=== PATIENT | female | born 1950 | race Caucasian/White ===

== ENCOUNTER 2022-04-16 13:30 | Outpatient (CLI) | payer MEDICARE, SELFPAY ==
--- NOTE | ~2022-04-16 | CT_ITS ---
EXAMINATION: CT brain wo/w & sinus wo con DATE: 04/16/2022 14:00 INDICATION: Headache, new onset. TECHNIQUE: Computed tomography (CT) of the head and sinuses was performed without intravenous contras t. The mA was adjusted according to patient size. Iterative reconstruction technique was employed. Th e dose-length product was 1286.33 mGy-cm. COMPARISON: None FINDINGS: CT HEAD: There are scattered areas of low attenuation in the cerebral white matter, which is within n ormal limits for the patient's age. There is no intracranial hemorrhage, acute infarction, or abnorma l intracranial mass lesion. The ventricles are normal in size. There are likely changes of ocular bi s replacement surgeries. There is a small right mastoid effusion. CT SINUSES: There is leftward deviation of the nasal septum. The frontal sinuses are clear. There is mild mucosal thickening in left sphenoid sinus. The ethmoid and maxillary sinuses are clear. The osti omeatal units are widely patent. IMPRESSION: 1. Normal aging brain. 2. Mild mucosal thickening in sphenoid sinus. 3. Leftward deviation of the nasal septum. Reviewed, dictated and finalized at location A. DEPARTMENT HEAD
[2022-04-16 13:54] LABS: Estimated Glomerular Filt Rate > 60
== END 2022-04-16 13:31 | disposition home or self-care (01) ==
PROVIDERS: PCP Emergency Medicine; Visit Provider Emergency Medicine
DX: R51.9 Headache, unspecified (principal); J34.2 Deviated nasal septum
CPT/HCPCS: 70470; 70486

== ENCOUNTER 2023-04-07 10:05 | Outpatient (CLI) | payer MEDICARE, SELFPAY ==
--- NOTE | ~2023-04-07 | US_ITS ---
EXAMINATION: US thyroid DATE: 04/07/2023 10:50 INDICATION: Nontoxic single thyroid nodule. TECHNIQUE: Multiple ultrasound images of the thyroid were obtained. COMPARISON: None. FINDINGS: The right thyroid lobe measures 4.8 x 2.0 x 1.9 cm. The left thyroid lobe measures 4.9 x 1.3 x 1.9 c m. There are multiple subcentimeter nodules in the thyroid. In the right thyroid lobe, there is a 12 mm solid, hypoechoic, wider than tall nodule with lobulated margin without echogenic foci (TI-RADS T R4). In the right thyroid lobe, there is a 2.9 cm solid, hypoechoic, wider than tall nodule with smoo th margin without echogenic foci (TR4). IMPRESSION: 1. Multinodular goiter. Ultrasound-guided fine-needle aspiration of the 2.9 cm right thyroid nodule i s recommended. Reviewed, dictated and finalized at location E. IMPRESSION: 1. Multinodular goiter. Ultrasound-guided fine-needle aspiration of the 2.9 cm right thyroid nodule is recommended.
== END 2023-04-07 10:06 | disposition home or self-care (01) ==
LOC: ANHIMG 10:09
PROVIDERS: PCP Emergency Medicine; Visit Provider Emergency Medicine
DX: E04.2 Nontoxic multinodular goiter (principal)
CPT/HCPCS: 76536

== ENCOUNTER 2023-08-26 07:38 | Outpatient (CLI) | payer MEDICARE, SELFPAY ==
--- NOTE | ~2023-08-26 | DEXA_ITS ---
Bone Density Report Name: MATTEO HENDERSON Age: 73 Sex: Female Ethnicity: White Date of : 1950 Indication: postmenopausal; screening for osteoporosis; height loss; history of glucocorticoids; Referring Provider: ALKA ZAPATA Study: Bone densitometry was performed. Exam Date: August 26, 2023 Accession number: [id number] Bone Density: Region BMD T-score Z-score Classification AP Spine(L1-L4) 1.016 -0.3 2.1 Normal Femoral Neck (Left) 0.792 -0.5 1.5 Normal Total Hip (Left) 0.919 -0.2 1.6 Normal Femoral Neck (Right) 0.784 -0.6 1.5 Normal Total Hip (Right) 0.998 0.5 2.2 Normal Total Hip Mean 0.958 0.2 1.9 Normal World Health Organization criteria for BMD impression classify patients as: Normal (T-score at or above -1.0), Osteopenia (T-score between -1.0 and -2.5), or Osteoporosis (T-score at or below -2.5). 10-year Fracture Risk: FRAX not reported because: All T-scores for Spine Total, Hip Total, Femoral Neck at or above -1.0 Clinical Information Provided by Patient: Has taken Glucocorticoids Has used the following medications: Vitamin D, Calcium Patient maximum height was 67 No regular weight bearing exercise Drinks caffeinated beverages Onset of menses at age 11 Number of children 2 Impression: The patient has normal bone mass. The patient has risk factors, including: history of glucocorticoid therapy. Discussion: BONE DENSITY IS ABOVE THE MINIMUM DESIRABLE LEVEL AT ALL SKELETAL SITES TESTED. This patient?s bone mineral density is above the minimum desirable level (T-score -1.0 or better) at all sites measured. The patient should follow a healthful lifestyle (good nutrition with adequate calcium and vitamin D, and appropriate weight-bearing exercise). Follow-Up: Consider repeating this study in 5 years or sooner if there is some new clinical indication. Reported by: LEIF on 08/26/2023 8:25:00 AM. Reviewed, dictated and finalized at location AShannan SALMERON
== END 2023-08-26 07:39 | disposition home or self-care (01) ==
PROVIDERS: PCP Emergency Medicine; Visit Provider Emergency Medicine
DX: Z78.0 Asymptomatic menopausal state (principal)
CPT/HCPCS: 77080

== ENCOUNTER 2023-12-08 02:11 | Day surgery (SDC) | payer MEDICARE, SELFPAY ==
[2023-07-12 11:45] VITALS: BMI 39.8
[2023-11-26 09:20] VITALS: BMI 40.3
[2023-12-08 08:02] VITALS: BP 152/80; PULSE 64; RESP 18; TEMP 36.9; O2SAT 95
[2023-12-08] MEDS: LACTATED RINGERS 1,000 ML 150 ML IV CONT (08:13)
--- NOTE | 2023-12-08 08:23 | PM.HPGS ---
History of Present Illness History of Present Illness Consent: Risks, benefits, and alternatives have been discussed and questions answered. Patient agrees to proceed with procedure. Chief complaint: colon screening Narrative: Amara Faulkner is a 73 year old female here for colonoscopy, last one more than 10 years ago Review of Systems Review of Systems: All systems reviewed & are unremarkable except as noted in HPI and below PMFSH Past Medical History Medical History (Updated 12/08/23 @ 08:27 by Jamison Martinez MD) Acute bronchitis Acute non-recurrent sinusitis Benign hypertension Benign neoplasm of ascending colon Benign neoplasm of cecum Colon cancer screening Encounter for immunization (03/17/19) Encounter for screening for malignant neoplasm of lung Morbid (severe) obesity due to excess calories Rosacea Severe episode of recurrent major depressive disorder Surgical History Surgical History Hx of gastric bypass (~2008) Family History Family History Father Family history of kidney disease Mother Family history of malignant neoplasm of breast in first degree relative Other Diabetes mellitus Family history of cardiovascular disease Social History Social History Social History: Caffeine- coffee daily Years smoked: 30 Smoking status: Former smoker Tobacco type: cigarettes Alcohol intake: current Alcohol use details: Socially Substance use: never Substance use type: does not use Living arrangements: alone Spiritual care concerns: No Meds Home Medications and Allergies Home Medications Medication Instructions Recorded Confirmed Type ascorbic acid (vitamin C) 500 mg 1,000 mg PO DAILY 06/23/19 11/26/23 History capsule mecobalamin (vitamin B12) 5,000 5,000 mcg PO DAILY 06/23/19 11/26/23 History mcg disintegrating tablet calcium carbonate 600 mg-vitamin 1 cap PO TID 10/24/19 11/26/23 History D3 10 mcg (400 unit) capsule ketoconazole 2 % topical cream 1 applic topical DAILY PRN Skin 10/24/19 11/26/23 History Irritation melatonin 10 mg capsule 10 mg PO DAILY PRN Sleep 10/24/19 11/26/23 History vortioxetine 10 mg tablet 10 mg PO DAILY #90 tabs 02/17/21 12/08/23 Rx ([facility]) azelastine 137 mcg (0.1 %) nasal 137 mcg intranasal DAILY 06/23/23 11/26/23 History spray triamcinolone acetonide 0.1 % 1 applic topical BID PRN 06/23/23 11/26/23 Rx topical cream dermatitis #80 grams atenolol 25 mg tablet 25 mg PO DAILY #90 tabs 08/06/23 12/08/23 Rx omeprazole 20 mg capsule,delayed See Rx Instructions .Route 09/24/23 11/26/23 Rx release .COMPLEX #90 caps alprazolam 0.5 mg tablet 0.5 mg PO PRN PRN Anxiety 11/26/23 11/26/23 History bupropion HCl 75 mg tablet 75 mg PO DAILY 11/26/23 12/08/23 History Allergies Allergy/AdvReac Type Severity Reaction Status Date / Time Penicillins Allergy Unknown Skin Verified 12/08/23 08:01 Reaction Sulfa (Sulfonamide Allergy Unknown Pt does Verified 12/08/23 08:01 Antibiotics) not remember reaction adhesive tape AdvReac Itching Verified 12/08/23 08:01 Vital Signs Vital Signs - 24 hr 12/08/23 08:02 Temperature 98.4 F Pulse Rate 64 Respiratory Rate 18 Blood Pressure 152/80 H Pulse Oximetry 95 Oxygen Delivery Room Air Exam Const: General: comfortable and no acute distress HENMT: Face/Nose/Sinus: Normal nares present Eyes: General: appearance normal, both eyes and all related structures Neck: Neck: no JVD Resp: Auscultation: clear to auscultation bilaterally Cardio: Rate: regular rate Rhythm: regular rhythm GI: Inspection: non-distended GI Palp: Yes Soft to palpation Skin: General skin exam: normal color Neuro: General: gait normal Speech: normal speech Extrem: General: normal to inspection Psych:
--- NOTE | 2023-12-08 08:45 | WPDANESEPPF ---
Anes - Initial Pre Proc Eval Procedure: Operation Date: 12/08/23 09:30 Proposed Procedures p Colonoscopy - Jamison Martinez MD Date/Time: 12/08/23 08:45 Surgeon: Jamison Martinez MD Pre Op Diagnosis: colon screening Patient Data Age: 73 Gender: F Height: 1.68 m Weight: 113.1 kg Last Vital Signs Temp 98.4 F 12/08/23 08:02 Pulse 64 12/08/23 08:02 Resp 18 12/08/23 08:02 BP 152/80 H 12/08/23 08:02 Pulse Ox 95 12/08/23 08:02 O2 Del Method Room Air 12/08/23 08:02 Allergies Allergy/AdvReac Type Severity Reaction Status Date / Time Penicillins Allergy Unknown Skin Verified 12/08/23 08:01 Reaction Sulfa (Sulfonamide Allergy Unknown Pt does Verified 12/08/23 08:01 Antibiotics) not remember reaction adhesive tape AdvReac Itching Verified 12/08/23 08:01 Home Medications Medication Instructions Recorded Confirmed Type ascorbic acid (vitamin C) 500 mg 1,000 mg PO DAILY 06/23/19 11/26/23 History capsule mecobalamin (vitamin B12) 5,000 5,000 mcg PO DAILY 06/23/19 11/26/23 History mcg disintegrating tablet calcium carbonate 600 mg-vitamin 1 cap PO TID 10/24/19 11/26/23 History D3 10 mcg (400 unit) capsule ketoconazole 2 % topical cream 1 applic topical DAILY PRN Skin 10/24/19 11/26/23 History Irritation melatonin 10 mg capsule 10 mg PO DAILY PRN Sleep 10/24/19 11/26/23 History vortioxetine 10 mg tablet 10 mg PO DAILY #90 tabs 02/17/21 12/08/23 Rx ([facility]) azelastine 137 mcg (0.1 %) nasal 137 mcg intranasal DAILY 06/23/23 11/26/23 History spray triamcinolone acetonide 0.1 % 1 applic topical BID PRN 06/23/23 11/26/23 Rx topical cream dermatitis #80 grams atenolol 25 mg tablet 25 mg PO DAILY #90 tabs 08/06/23 12/08/23 Rx omeprazole 20 mg capsule,delayed See Rx Instructions .Route 09/24/23 11/26/23 Rx release .COMPLEX #90 caps alprazolam 0.5 mg tablet 0.5 mg PO PRN PRN Anxiety 11/26/23 11/26/23 History bupropion HCl 75 mg tablet 75 mg PO DAILY 11/26/23 12/08/23 History Patient hx anesthesia problems: none Family hx anesthesia problems: none Results Review: All pre-operative results and documents have been reviewed as part of the pre-operative evaluation. [facility] Past Medical History Medical History (Updated 12/08/23 @ 08:27 by Jamison Martinez MD) Acute bronchitis Acute non-recurrent sinusitis Benign hypertension Benign neoplasm of ascending colon Benign neoplasm of cecum Colon cancer screening Encounter for immunization (03/17/19) Encounter for screening for malignant neoplasm of lung Morbid (severe) obesity due to excess calories Rosacea Severe episode of recurrent major depressive disorder Surgical History Surgical History Hx of gastric bypass (~2008) Family History Family History Father Family history of kidney disease Mother Family history of malignant neoplasm of breast in first degree relative Other Diabetes mellitus Family history of cardiovascular disease Social History Social History Social History: Caffeine- coffee daily Years smoked: 30 Smoking status: Former smoker Tobacco type: cigarettes Alcohol intake: current Alcohol use details: Socially Substance use: never Substance use type: does not use Living arrangements: alone Spiritual care concerns: No Anes - Eval Final PreProcedure Day of Procedure 12/08/23 08:45 Patient weight: morbidly obese Heart: regular rate and rhythm Lungs: clear to auscultation Airway: Mallampati scale class II Neurological: alert and oriented Last oral intake: >/= 8 hours ASA classification: III Emergent: no Anesthetic plan: proceed Anesthesia type and monitoring: general GIVS and standard monitoring Results Review: All pre-operative results and documents h
[2023-12-08 09:04] VITALS: BP 118/63; PULSE 59; RESP 18; O2SAT 97
[2023-12-08 09:14] VITALS: BP 117/62; PULSE 53; RESP 25; O2SAT 100
[2023-12-08 09:24] VITALS: BP 123/70; PULSE 52; RESP 15; O2SAT 96
== END 2023-12-08 09:35 | disposition home or self-care (01) ==
PROVIDERS: PCP Emergency Medicine; Visit Provider Internal Medicine Gastroenterology
PROC: 0DJD8ZZ Inspection of Lower Intestinal Tract, Via Natural or Artificial Opening Endoscopic (ICD-10-PCS; CPT 45378; principal; 2023-12-08 09:30)
DX: Z12.11 Encounter for screening for malignant neoplasm of colon (principal); K64.8 Other hemorrhoids; K57.30 Diverticulosis of large intestine without perforation or abscess without bleeding; I10 Essential (primary) hypertension; E66.01 Morbid (severe) obesity due to excess calories; Z68.41 Body mass index [BMI] 40.0-44.9, adult; Z98.84 Bariatric surgery status; Z86.010 Personal history of colon polyps; Z87.891 Personal history of nicotine dependence; Z80.3 Family history of malignant neoplasm of breast; Z82.49 Family history of ischemic heart disease and other diseases of the circulatory system
CPT/HCPCS: G0105; J2704; J7120